=== PATIENT | female | born 1955 | race Caucasian/White ===

== ENCOUNTER 2017-08-13 15:59 | Emergency (ER) | payer BC ==
--- NOTE | 2017-08-13 17:07 | ER Document Report ---
ED Medical Screen (RME) - General Chief Complaint: Leg Pain Stated Complaint: LEG PAIN Time Seen by Provider: 08/13/17 17:03 Mode of Arrival: Ambulatory Information source: Patient Notes: 62 yo non smoker, HRT female with left posteroir lower thigh pain with whole knee pain and ankle swelling. 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 NO hx DVT or PE. Traveled by air on 08-03-17, problem started after that. Visiting daughter in the area. - Related Data Allergies/Adverse Reactions: No Known Allergies Allergy (Verified 08/13/17 16:01) Physical Exam - Vital signs Vitals: Temp Pulse Resp BP Pulse Ox 98.0 F 71 14 131/81 H 100 08/13/17 16:09 08/13/17 16:09 08/13/17 16:09 08/13/17 16:09 08/13/17 16:09 Course - Vital Signs Vital signs: Temp Pulse Resp BP Pulse Ox 98.0 F 71 14 131/81 H 100 08/13/17 16:09 08/13/17 16:09 08/13/17 16:09 08/13/17 16:09 08/13/17 16:09
[2017-08-13 17:55] LABS: ABSOLUTE EOSINOPHILS # (AUTO) 0.1 10^3/uL (0.0-0.6); ABSOLUTE LYMPHOCYTES (AUTO) 1.5 10^3/uL (0.5-4.7); ABSOLUTE MONOCYTES (AUTO) 0.4 10^3/uL (0.1-1.4); ABSOLUTE NEUT (AUTO) 2.5 10^3/uL (1.7-8.2); BASOPHILS % (AUTO) 0.5 % (0-2); EOSINOPHILS % (AUTO) 2.5 % (0-6); HEMATOCRIT 45.1 % (36.0-47.0); HEMOGLOBIN 14.9 g/dL (12.0-15.5); MEAN CORPUSCULAR HEMOGLOBIN 31.5 pg (27.0-33.4); MEAN CORPUSCULAR HGB CONC 32.9 g/dL (32.0-36.0); MEAN CORPUSCULAR VOLUME 96 fl (80-97); MONOCYTES % (AUTO) 9.3 % (3-13); PLATELET COUNT 271 10^3/uL (150-450); RED BLOOD COUNT 4.71 10^6/uL (3.72-5.28); RED CELL DISTRIBUTION WIDTH 14.1 % (11.5-14.0); SEGMENTED NEUTROPHILS % (AUTO) 54.7 % (42-78); TOTAL CELLS COUNTED % (AUTO) 100 %; WHITE BLOOD COUNT 4.6 10^3/uL (4.0-10.5)
[2017-08-13 18:00] LABS: PROTHROMBIN TIME 11.7 SEC (11.4-15.4)
[2017-08-13 18:01] LABS: PARTIAL THROMBOPLASTIN TIME 25.5 SEC (23.5-35.8)
--- NOTE | 2017-08-13 19:43 | ER Document Report ---
ED General - General Chief Complaint: Leg Pain Stated Complaint: LEG PAIN Time Seen by Provider: 08/13/17 17:03 Mode of Arrival: Ambulatory Notes: Patient is a 62-year-old woman visiting from [place] who presents with concerns of a possible blood clot in her left lower extremity. Patient states that she had a knee arthroplasty in the left approximately 1 month ago. She flew here just over a week ago and states that after landing she began to have a progressively worsening dull, aching, throbbing pain to her left knee and calf. Walking worsens the pain. Nothing improves the pain. She denies any history of similar symptoms in the past. No history of venous thromboembolism in the past. She does not take any form of anticoagulation. She was encouraged by her surgeon to come be evaluated for possible DVT. She denies any swelling or erythema to the area. No fever or constitutional symptoms. She states she otherwise feels well. - Related Data Allergies/Adverse Reactions: No Known Allergies Allergy (Verified 08/13/17 16:01) Past Medical History - General Information source: Patient - Social History Smoking Status: Never Smoker Chew tobacco use (# tins/day): No Frequency of alcohol use: None Drug Abuse: None Lives with: Spouse/Significant other Family History: Reviewed & Not Pertinent Patient has suicidal ideation: No Patient has homicidal ideation: No Renal/ Medical History: Denies: Hx Peritoneal Dialysis Past Surgical History: Reports: Hx Orthopedic Surgery - L Knee Review of Systems - Review of Systems Notes: Constitutional: Negative for fever. HENT: Negative for sore throat. Eyes: Negative for visual changes. Cardiovascular: Negative for chest pain. Respiratory: Negative for shortness of breath. Gastrointestinal: Negative for abdominal pain, vomiting or diarrhea. Genitourinary: Negative for dysuria. Musculoskeletal: Positive for left knee and calf pain Skin: Negative for rash. Neurological: Negative for headaches, weakness or numbness. 10 point ROS negative except as marked above and in HPI. Physical Exam - Vital signs Vitals: Temp Pulse Resp BP Pulse Ox 98.0 F 71 14 131/81 H 100 08/13/17 16:09 08/13/17 16:09 08/13/17 16:09 08/13/17 16:09 08/13/17 16:09 Interpretation: Normal Notes: PHYSICAL EXAMINATION: GENERAL: Well-appearing, well-nourished and in no acute distress. HEAD: Atraumatic, normocephalic. EYES: Pupils equal round and reactive to light, extraocular movements intact, sclera anicteric, conjunctiva are normal. ENT: nares patent, oropharynx clear without exudates. Moist mucous membranes. NECK: Normal range of motion, supple without lymphadenopathy LUNGS: Breath sounds clear to auscultation bilaterally and equal. No wheezes rales or rhonchi. HEART: Regular rate and rhythm without murmurs ABDOMEN: Soft, nontender, normoactive bowel sounds. No guarding, no rebound. No masses appreciated. EXTREMITIES: Normal range of motion, mild swelling of the left knee without erythema warmth to touch. No limited range of motion. No pain on palpation. NEUROLOGICAL: No focal neurological deficits. Moves all extremities spontaneously and on command. PSYCH: Normal mood, normal affect. SKIN: Warm, Dry, normal turgor, no rashes or lesions noted. Course - Re-evaluation Re-evalutation: 08/13/17 19:41 Patient presents with 1 week of left knee and calf pain after having a total knee replacement prior. Patient was [facility] a flight from [place] [facility] [place] and symptoms started after getting off the flight. She was concerned about the possibility of a DVT. On examination there is a small amount of swelling to the knee but no erythema, warmth, or limited range of motion. Nothing to suggest an acute septic joint, acute gouty arthritis. Venous Doppler of the left lower extremity is negative for any evidence of an acute DVT. Labs otherwise unremarkable. Patient is able to ambulate without any difficulty. At this time will discharge with return precautions and follow- up recommendations. Verbal discharge instructions given a the bedside and opportunity for questions given. Medication warnings reviewed. Patient is in agreement with this plan and has verbalized understanding of return precautions and the need for primary care follow-up in the next 24-72 hours. - Vital Signs Vital signs: Temp Pulse Resp BP Pulse Ox 97.4 F 63 16 138/84 H 98 08/13/17 19:45 08/13/17 19:45 08/13/17 19:45 08/13/17 19:45 08/13/17 19:45 - Laboratory Result Diagrams: 08/13/17 17:34 Laboratory results interpreted by me: 08/13/17 17:34 RDW 14.1 H - Diagnostic Test Radiology reviewed: Reports reviewed Discharge - Discharge Clinical Impression: Swelling of joint of left knee Left knee pain Qualifiers: Chronicity: acute Qualified Code(s): M25.562 - Pain in left knee Condition: Good Disposition: HOME, SELF-CARE Additional Instructions: Your labs and ultrasound of the leg are normal today. Your symptoms may be due to postoperative inflammation of the knee but currently there is nothing to suggest an acute infection or blood clot in the leg. Please follow-up with your surgeon. Return for any additional concerns you may have which includes worsening pain, fever, inability to range her knee, or any other symptoms that are worrisome to you.
[2017-08-13 19:46] VITALS: BP 138/84
--- NOTE | 2017-08-13 20:21 | RADIOLOGY REPORT (SQ) ---
EXAM DESCRIPTION: VENOUS UNILATERAL LOWER COMPLETED DATE/TIME: 08/13/2017 7:31 pm REASON FOR STUDY: left posterior leg pain, swelling COMPARISON: None. TECHNIQUE: Dynamic and static schmidt scale and color images acquired of the left leg venous system. Se lected spectral images acquired with additional compression and augmentation maneuvers. The contralat eral common femoral vein and saphenofemoral junction were also imaged. Images stored on PACS. LIMITATIONS: None. FINDINGS: COMMON FEMORAL: Normal phasicity, compression and augmentation. No visualized echogenic ma terial on schmidt scale. No defects on color images. FEMORAL: Normal compression and augmentation. No visualized echogenic material on schmidt scale. No defe cts on color images. POPLITEAL: Normal compression, augmentation. No visualized echogenic material on schmidt scale. No defec ts on color images. CALF VESSELS: Normal compression, augmentation. No visualized echogenic material on schmidt scale. No de fects on color images. GSV and SSV: Normal compression, augmentation. No visualized echogenic material on schmidt scale. No def ects on color images. ANY DEEP VENOUS INSUFFICIENCY: Not evaluated. ANY EVIDENCE OF POPLITEAL CYST: No. OTHER: No other significant finding. CONTRALATERAL COMMON FEMORAL VEIN AND SAPHENOFEMORAL JUNCTION: Normal phasicity, compression and augmentation. No visualized echogenic material on schmidt scale. No de fects on color images. IMPRESSION: NO EVIDENCE OF DVT OR SVT IN THE LEFT LEG. TECHNICAL DOCUMENTATION: JOB ID: [id number]-[id number]- All Rights Reserved
== END 2017-08-13 19:48 | disposition home or self-care (01) ==
LOC: ER 15:59
DX: M79.605 Pain in left leg (principal); M25.462 Effusion, left knee; M25.562 Pain in left knee
CPT/HCPCS: 36415; 85025; 85610; 85730; 93971; 99284